=== PATIENT | female | born 1995 | race Caucasian/White ===

== ENCOUNTER 2022-12-06 08:44 | Day surgery (SDC) | payer MEDICAID ==
[2022-12-02 16:05] LABS: BASOPHILS % (AUTO) 0.5 % (0-1); EOSINOPHILS % (AUTO) 0.3 % (0-6); LYMPHOCYTES # (AUTO) 1.5 X10'3 (1.1-4.8); LYMPHOCYTES % (AUTO) 19.6 % (21-51); MEAN CORPUSCULAR HEMOGLOBIN 28.7 PG (27.0-31.0); MEAN CORPUSCULAR HGB CONC 33.2 g/dL (33.0-36.5); MEAN CORPUSCULAR VOLUME 86.3 FL (78-98); MEAN PLATELET VOLUME 8.8 FL (7.4-10.4); MONOCYTES # (AUTO) 0.7 X10'3 (0-0.9); MONOCYTES % (AUTO) 8.6 % (2-12); NEUTROPHILS # (AUTO) 5.5 X10'3 (1.8-7.7); PRE OP HEMATOCRIT 39.1 % (35.0-45.0); PRE OP PLATELET COUNT 263 X10'3 (140-440); RED BLOOD COUNT 4.53 X10'6 (4.20-5.60); RED CELL DISTRIBUTION WIDTH 14.5 % (11.5-14.5)
[2022-12-02 16:28] LABS: ALBUMIN 4.2 G/DL (3.4-5.0); ALBUMIN/GLOBULIN RATIO 1.1 (1.1-1.5); ALKALINE PHOSPHATASE 78 IU/L (46-116); BLOOD UREA NITROGEN 9 MG/DL (7-18); BUN/CREATININE RATIO 11.5 (10.0-20.0); CALCIUM 8.7 MG/DL (8.5-10.1); CHLORIDE 104 MMOL/L (99-107); CREATININE 0.78 MG/DL (0.40-0.90); PRE OP ALT 14 U/L (30-65); PRE OP ANION GAP 11 (8-16); PRE OP AST 13 U/L (10-37); PRE OP BILIRUB, TOTAL 0.2 MG/DL (0.0-1.0); PRE OP GLUCOSE 89 MG/DL (70-104); PRE OP SODIUM 140 MMOL/L (135-145); TOTAL CARBON DIOXIDE 25.5 MMOL/L (24-32); TOTAL PROTEIN 8.1 G/DL (6.4-8.2); eGFR 87 ML/MIN
[2022-12-02 16:36] LABS: HCG SERUM QL NEGATIVE
[~2022-12-06] VITALS: Ht 160 cm; Wt 65.1 kg
[2022-12-06] VITALS (8 sets, daily range): BP systolic 110–135; BP diastolic 64–97
[~2022-12-06 08:44] MED LIST: NO HOME MEDS; cefazolin 2gm/D5W 100mL 100 ML IV ONE; famotidine 20mg tablet PO ONE; ringers solution, lacted 1,000 ML IV SCH
[2022-12-06] MEDS ORDERED: ketorolac trometh. 30mg/ml inj. IV ONE (10:00)
[2022-12-06] MEDS ORDERED: meperidine/PF 25mg/ml syringe IV PRN ×3 (10:00)
[2022-12-06] MEDS ORDERED: labetalol 20mg/4ml (5mg/ml) syringe IV PRN (10:00)
[2022-12-06] MEDS ORDERED: proCHLORperazine 10 MG/2 ml inj IV PRN (10:00)
[2022-12-06] MEDS ORDERED: ringers solution, lacted 1,000 ML IV SCH (10:00)
[2022-12-06] MEDS ORDERED: hydrALAZINE 20mg/ml inj. IV PRN (10:00)
[2022-12-06] MEDS ORDERED: morphine 2 MG/ML inj. syringe IV PRN (10:00)
[2022-12-06] MEDS ORDERED: acetaminophen 1,000mg/100ml IV 100 ML IV PRN (10:00)
[2022-12-06] MEDS ORDERED: ondansetron/PF 4mg/2ml inj IV PRN (10:00)
[2022-12-06] MEDS ORDERED: morphine 4 MG/ML inj SYRINge IV PRN (10:00)
[2022-12-06 10:37] LABS: ISTAT CREATININE 0.8 mg/dL (0.6-1.1); ISTAT HGB 14.3 g/dl (12.0-16.0); ISTAT IONIZED CALCIUM 1.17 mmol/L (1.03-1.32); ISTAT K 3.9 mmol/L (3.5-5.1); POC BUN/CREATININE RATIO 12.5 (6.6-38.0)
[2022-12-06] MEDS ORDERED: BUPIVAcaine HCl 0.25%/EPInephrine 1:200,000 inj. 10 ML VIAL ONE (11:38)
[2022-12-06] MEDS ORDERED: fentaNYL/PF 50MCG/1 ML 2ML syringe ONE (12:02)
[2022-12-06] MEDS ORDERED: midazolam 1 mg/ML 2ml injection ONE (12:02)
[2022-12-06] MEDS ORDERED: propofol inj 20 ML IV ONE (12:15)
[2022-12-06] MEDS ORDERED: LIDOcaine 2% (20mg/ml) 5ml vial ONE (12:15)
[2022-12-06] MEDS ORDERED: rocuronium 10mg/ml inj IV ONE (12:15)
[2022-12-06] MEDS ORDERED: neostigmine methylsulfate 1 MG/ML 10ml vial ONE (12:39)
[2022-12-06] MEDS ORDERED: glycopyrrolate 0.2mg/ml inj ONE (12:39)
[2022-12-06] MEDS ORDERED: dexamethasone sod phosphate 4mg/ml inj. ONE (12:40)
[2022-12-06] MEDS ORDERED: ondansetron/PF 4mg/2ml inj ONE (12:40)
--- NOTE | 2022-12-06 12:53 | NUR ---
Received from OR via [facility], accompanied by Anesthesiologist and report given by ARCELIA Anesthesiologist. PATIENT WAKING UP, SEVERE PELVIC PAIN NOTED, V/S WNL, 20G TO RIGHT HAND, ABDOMEN DERMABOND DRESSING C/D/I, TAWNYA PAD DRESSING C/D/I. PT RESTING COMFORTABLY. WILL CONTINUE TO ASSESS. Addendum: 12/06/22 at 1316 by Jean Guzman RN Amended: Links added.
--- NOTE | 2022-12-06 13:53 | NUR ---
ALL DISCHARGE CRITERIA HAS BEEN MET. VSS, PAIN AT A TOLERABLE LEVEL, ABLE TO SAFELY AMBULATE AND TRANSFER SELF. IV TAKEN OUT WITHOUT ANY COMPLICATIONS. ALL DISCHARGE INSTRUCTIONS COVERED WITH PATIENT AND ALL QUESTIONS ANSWERED. PATIENT TAKEN OUT VIA WHEELCHAIR WITH ALL BELONGINGS TO PERSONAL VEHICLE WHERE FAMILY DROVE PATIENT HOME. Addendum: 12/06/22 at 1401 by Jean Guzman RN Amended: Links added.
== END 2022-12-06 13:53 | disposition home or self-care (01) ==
LOC: PAS 08:44
PROVIDERS: ATTEND Obstetrics & Gynecology
DX: Z30.2 Encounter for sterilization (principal); F12.90 Cannabis use, unspecified, uncomplicated; Z72.89 Other problems related to lifestyle; Z87.891 Personal history of nicotine dependence
CPT/HCPCS: 36415; 58670; 80047; 80053; 84703; 85025; J0690; J1100; J1885; J2175; J2250; J2405; J2704; J2710; J3010; J3490; J7120; Z7506; Z7512; A4618; A7000